=== PATIENT | male | born 1950 | race Caucasian/White ===

== ENCOUNTER 2020-12-11 20:30 | Emergency (ER) | payer OTHER ==
[~2020-12-11 20:30] MED LIST: Iopamidol 370 76% 100 ML VIAL ONE
[2020-12-11 21:14] LABS: #Basophils 0.1 thou/uL (0.0-0.2); #Eosinphils 0.1 thou/uL (0.0-0.7); #Lymphocytes 1.3 thou/uL (1.20-3.40); #Monocytes 0.8 thou/uL (0.11-0.59); #Neutrophils 4.6 thou/uL (1.40-6.50); %Basophils 0.9 % (0.0-1.0); %Eosinophils 1.6 % (0.0-10.0); %Lymphocytes 19.5 % (21.0-51.0); Hemoglobin 16.3 g/dL (14.0-18.0); Mean Corpuscular HGB CONC 34.2 g/dL (32.0-36.0); Mean Corpuscular Hemoglobin 31.1 pg (27.0-31.0); Mean Corpuscular Volume 90.9 fL (78.0-98.0); Mean Platelet Volume 8.2 fL (7.4-10.4); Platelet Count 125 thou/uL (130-400); RBC Distribution Width 12.7 % (11.5-14.5); Red Blood Cell (RBC) Count 5.24 mill/uL (4.70-6.10); White Blood Cell (WBC) Count 6.9 thou/uL (4.8-10.8)
[2020-12-11 21:26] LABS: INR-International Normal Ratio 1.1; Prothrombin Time 14.7 sec (12.0-14.7)
[2020-12-11 21:34] LABS: ALT (SGPT) 72 U/L (8-55); AST (SGOT) 65 U/L (5-34); Alkaline Phosphatase 191 U/L (40-110); Anion Gap 17 mmol/L (10-20); BUN (Urea Nitrogen) 15 mg/dL (8.4-25.7); Bilirubin, Total 0.5 mg/dL (0.2-1.2); Calc. Creatinine Clearance 0 mL/min (70-130); Calcium 9.5 mg/dL (7.8-10.44); Carbon Dioxide 21 mmol/L (23-31); Chloride 105 mmol/L (98-107); Globulin 3.3 g/dL (2.4-3.5); Glucose 113 mg/dL (80-115); Potassium 4.5 mmol/L (3.5-5.1); Protein, Total 7.3 g/dL (5.8-8.1); Sodium 138 mmol/L (136-145)
[2020-12-11] MEDS ORDERED: Aspirin Chewable 81 MG TAB ONE (22:21)
[2020-12-12] MEDS ORDERED: Acetaminophen 500 MG TAB ONE (05:21)
[2020-12-12] MEDS ORDERED: Ondansetron PF 4 MG/2 ML Vial ONE (07:55)
== END 2020-12-12 12:46 | disposition short-term general hospital (02) ==
LOC: EEVIPCON 20:30 → ERS 20:30
DX: I63.9 Cerebral infarction, unspecified (principal)
CPT/HCPCS: 70450; 70496; 70498; 80053; 85025; 85610; 85730; 93005; 96374; J2405